=== PATIENT | female | born 1985 | race Caucasian/White ===

== ENCOUNTER 2023-04-05 17:26 | Outpatient (OUT) | payer BC, SELFPAY ==
--- NOTE | 2023-04-05 17:38 | US_ITS ---
[address] [address] Patient Name: JAMIA ARRINGTON MRN: [id number] date: 1985 Sex: F Assigned Patient Location: US Current Patient Location: Accession/Order Number: [id number] Exam Date: 04/05/2023 17:45 Report Date: 04/06/2023 07:34 At the request of: FRANC ELISE Procedure: US OB growth EXAMINATION: US OB growth HISTORY: 30 WEEKS GESTATION OF Z3A.30 COMPARISON: No relevant comparison available. FINDINGS: Heart Rate: 140.6 bpm Number: 1.0 Position: CEPHALIC Amniotic Fluid Volume: 14.2 cm Maximum Vertical Pocket: 5.0 cm BIOMETRY: BPD: 7.6 cm cm; 30 weeks 4 days; 75% HC: 28.8 cmcm; 31 weeks 5 days ; 80% AC: 26.4 cm cm; 30 weeks 4 days; 76% FL: 5.8 cm cm; 30 weeks 1 days; 56% EFW: 1589.2 grams; 77% FL/AC: 21.8 FL/BPD: 75.5 HC/AC: 1.1 GESTATIONAL AGE: Age by EDC: 29 weeks 3 days HECTOR by EDC: 06/18/2023 Age by US: 30 weeks 5 days HECTOR by US: 06/09/2023 US/US OB growth IMPRESSION: 1. Single live intrauterine with growth detailed above. Electronically authenticated by: NAZIA ROBLERO Date: 04/06/2023 07:34
== END 2023-04-05 17:27 | disposition home or self-care (01) ==
PROVIDERS: PCP Family Medicine; Visit Provider Midwife
DX: Z34.93 Encounter for supervision of normal pregnancy, unspecified, third trimester (principal); Z3A.30 30 weeks gestation of pregnancy
CPT/HCPCS: 76816

== ENCOUNTER 2023-06-11 20:18 | Inpatient (IN) | payer BC, SELFPAY ==
[2023-06-11] VITALS (22 sets, daily range): BP systolic 98–135; BP diastolic 55–82; PULSE 67–103; TEMP 36.4–36.9; O2SAT 97–98
--- OUTSIDE RECORDS SUMMARY | 2023-06-11 20:25 | XMS_ITS | CCD ---
Author Organization [facility] Care Team Providers Care Unit Control Worker Name Role Phone Elba Birch DO Primary Care Provider Fanny Lino MD Primary Care Provider Pump RADIO TALK SHOW HOST, Margarita Unavailable PUMP, MARGARITA Attending Unavailable FLORO, FRANC L Attending Unavailable FLORO, FRANC L Attending Unavailable FLORO, FRANC L Attending Unavailable FLORO, FRNAC L Referring Unavailable FLORO, FRANC L Attending Unavailable FLORO, FRANC L Attending Unavailable FLORO, FRANC L Referring Unavailable FLORO, FRANC L Attending Unavailable FLORO, FRANC L Referring Unavailable FLORO, FRANC L Attending Unavailable FLORO, FRANC L Referring Unavailable FLORO, FRANC L Attending Unavailable FLORO, FRANC L Referring Unavailable FLORO, FRANC L Referring Unavailable FLORO, FRANC L Attending Unavailable FLORO, FRANC L Attending Unavailable FLORO, FRANC L Referring Unavailable FLORO, FRANC L Attending Unavailable FLORO, FRANC L Referring Unavailable Medications Current Medications Medication Drug Class(es) Dates Sig (Normalized) Sig (Original) docusate sodium 100 mg oral capsule (5 sources) Start: 12-21-2022 End: 12-21-2023 take 1 capsule by mouth in the morning docusate sodium (Colace) 100 MG capsule Indications: Iron deficiency anemia, unspecified iron deficiency anemia type Take 1 capsule (100 mg) by mouth in the morning and 1 capsule (100 mg) before bedtime. 60 capsule 11 12/21/2022 12/21/2023 Active ferrous sulfate 325 mg oral tablet (5 sources) Start: 12-21-2022 End: 12-21-2023 take 1 tablet by mouth in the morning ferrous sulfate (FerrouSul) 325 (65 Fe) MG tablet Indications: Iron deficiency anemia, unspecified iron deficiency anemia type Take 1 tablet (325 mg) by mouth in the morning and 1 tablet (325 mg) before bedtime. 60 tablet 11 12/21/2022 12/21/2023 Active metFORMIN hydrochloride 500 mg oral tablet (5 sources) Biguanide Start: 08-08-2022 take 1 tablet by mouth twice daily at mealtime metFORMIN (Glucophage) 500 MG tablet Indications: Pelvic and perineal pain TAKE 1 TABLET BY MOUTH TWICE DAILY WITH A MEAL FOR 30 DAYS 180 tablet 1 08/08/2022 Active omeprazole 40 mg delayed release oral capsule (3 sources) Proton Pump Inhibitor take 1 capsule by mouth before mealtime omeprazole (PriLOSEC) [address] capsule Take 1 capsule by mouth in the morning. Take before meals. Do not crush or chew.. 0 Active MV-Min-Fe Fum-FA-DHA ( 1 PO) (3 sources) MV-Min- Fe Fum-FA-DHA ( 1 PO) Take 1 tablet by mouth in the morning. 0 Active sertraline 25 mg oral tablet (5 sources) Serotonin Reuptake Inhibitor Start: 12-05-2022 End: 12-05-2023 take 1 tablet by mouth in the morning sertraline (Zoloft) 25 MG tablet Indications: Recurrent major depression in partial remission (HCC) (CMS/HCC) Take 1 tablet (25 mg) by mouth in the morning. 90 tablet 1 12/05/2022 12/05/2023 Active Problems Active Problems Problem Classification Problem Date Documented Date Episodic/Chronic Anxiety disorders (5 sources) Anxiety; Translations: [Anxiety disorder, unspecified] Onset: 02-25-2020 02-16-2023 Chronic Deficiency and other anemia (5 sources) Iron deficiency anemia due to blood loss; Translations: [Iron deficiency anemia secondary to blood loss (chronic)] Onset: 02-16-2023 02-16-2023 Chronic Esophageal disorders (5 sources) Gastroesophageal reflux disease; Translations: [Gastro-esophageal reflux disease without esophagitis] Onset: 03-03-2019 02-16-2023 Chronic Female infertility (10 sources) Anovulation; Translations: [Female infertility associated with anovulation] Onset: 02-16-2023 02-16-2023 Chronic Heart valve disorders (5 sources) Heart murmur; Translations: [Cardiac murmur, unspecified] Onset: 02-19-2023 02-19-2023 Episodic Menstrual disorders (10 sources) Irregular periods; Translations: [Irregular menstruation, unspecified] Onset: 03-22-2020 02-16-2023 Chronic Other complications of (2 sources) Anemia of ; Translations: [Anemia complicating , third trimester] 03-28-2023 Chronic Other complications of (2 sources) Multigravida of advanced maternal age; Translations: [Supervision of elderly multigravida, third trimester] 03-28-2023 Episodic Other nutritional; endocrine; and metabolic disorders (5 sources) Obese class I; Translations: [Obesity, unspecified] Onset: 02-16-2023 02-16-2023 Chronic Other and delivery including normal (4 sources) Normal ; Translations: [Encounter for supervision of other normal , second trimester] 02-08-2023 Episodic Other screening for suspected conditions (not mental disorders or infectious disease) (4 sources) Patient encounter status; Translations: [Encounter for screening for diabetes mellitus] 03-28-2023 Episodic Unclassified (5 sources) Patient on antidepressant monitoring plan Onset: 12-05-2022 12-05-2022 Unclassified (5 sources) Baseline PHQ-9 Onset: 12-05-2022 12-05-2022 Past or Other Problems Problem Classification Problem Date Documented Da te Episodic/Chronic Diabetes mellitus without complication (5 sources) Hyperglycemia; Translations: [Hyperglycemia, unspecified] Onset: 10-25-2020 02-16-2023 Episodic Residual codes; unclassified (5 sources) Family history of cancer; Translations: [Family history of malignant neoplasm, unspecified] Onset: 03-04-2019 Resolved: 02-19-2023 02-19-2023 Episodic Results Test Name Value Interpretation Reference Range Facil ity US BIOPHYSICAL PROFILE WO NON STRESS TESTINGon 06-01-2023 US BIOPHYSICAL PROFILE WO NON STRESS TESTING FINDINGS: Breathing Movements 2 Gross Body Movements 2 Tone 2 Qualitative amniotic fluid volume 2 Normal biophysical profile, 09/19. A single, viable intrauterine is present. Cephalic presentation. heart rate 134 bpm. Grade II fundal placenta. Cervical is closed, 4.9 cm IMPRESSION: Normal biophysical profile. TRANSCRIBED BY: ELECTRONICALLY SIGNED BY: Oswaldo Cabello MD Normal Not Available US BIOPHYSICAL PROFILE WO NON STRESS TESTINGon 05-25-2023 US BIOPHYSICAL PROFILE WO NON STRESS TESTING FINDINGS: Breathing Movements 2 Gross Body Movements 2 Tone 2 Qualitative amniotic fluid volume 2 A single, viable intrauterine is present. The cervix is closed 6.0 cm length. Heart rate 129. Cephalic presentation, fundal placement, Grade 1. JESUS is 17.0 cm. IMPRESSION: Normal biophysical profile. TRANSCRIBED BY: ELECTRONICALLY SIGNED BY: Oswaldo Cabello MD Normal Not Available US BIOPHYSICAL PROFILE WO NON STRESS TESTINGon 05-18-2023 US BIOPHYSICAL PROFILE WO NON STRESS TESTING EXAM: US BIOPHYSICAL PROFILE WO NON STRESS TESTING DATE: 05/18/2023 4:27 PM CLINICAL HISTORY: Advanced age. COMPARISON: OB ultrasound 05/11/2023 TECHNIQUE: Grayscale evaluation of the fetus was performed for biophysical profile purposes and does not constitute an anatomic survey. FINDINGS: Single live intrauterine . heart rate 131 bpm. Cephalic position. Grade 2 fundal placenta. Cervical length 5.0 cm. JESSU 12.15 cm, 31.9 percentile for gestation. Biophysical profile as follows: Breathin/2. Tone: 2/2. Gross movement: 2/2. JESUS: 2/2. Total: 8/8. IMPRESSION: BIOPHYSICAL PROFILE SCORE OF 8 OUT OF 8. ELECTRONICALLY SIGNED BY: Delvin Vega MD Normal Not Available US OB FOLLOW UP TRANSABDOMIN AL APPROACHon 05-11-2023 US OB FOLLOW UP TRANSABDOMINAL APPROACH FINDINGS: A single, live intrauterine is present with normal cardiac rate of 149 beats per minute. Normal activity and amniotic fluid volume. Amniotic fluid index is 16 cm. Morphology is grossly normal. Cervix difficult to see due to gestational age and shadowing. The placenta is posterior Grade 1.The current sonographic age is 34 weeks and 4 days, based on the following measurements: BPD 8.6 cm ( 34 weeks, 4 days) Head Circumference 31.0cm ( 34weeks, 4 days) Abdominal Circumference 30.6 cm ( 34 weeks,4 days) Femur Length 6.8 cm (34 weeks,6 days) Presentation Cephalic Placenta Posterior These measurements result in an estimated date of delivery of June 18, 2023 The current estimated weight is 2477 grams +/- grams ( 5 pound, 7 ounces). Weight by percentile 47.2% IMPRESSION: Single, live intrauterine , current sonographic age of 34 weeks and 4 days, with an estimated date of delivery of June 18, 2023 TRANSCRIBED BY: ELECTRONICALLY SIGNED BY: Oswaldo Cabello MD Normal Not Available US BIOPHYSICAL PROFILE WO NON STRESS TESTINGon 05-04-2023 US BIOPHYSICAL PROFILE WO NON STRESS TESTING EXAMINATION: US BIOPHYSICAL PROFILE WO NON STRESS TESTING DATE AND TIME:05/04/2023 9:19 AM REFERRING PHYSICIAN:FRANC PUTNAM CLINICAL HISTORY: Assess well-being. COMPARISON: 04/27/2023. Technique: Grayscale violation of the fetus was performed for biophysical profile purposes and does not constitute an anatomic survey. RESULT: The fetus received a score of 8 out of 8. Two points were awarded for the following: * breathing movementsYes * movementsYes * toneYes * Amniotic fluid volumeYes Amniotic fluid index was 16 cm, 61st percentile heart rate was 134 bpm. Cervix: Measures around 5.8 cm. position cephalic. Posterior placenta grade 1 IMPRESSION: BIOPHYSICAL PROFILE SCORE OF 8 OUT OF 8. JESUS AND HEART RATE DESCRIBED ABOVE. ELECTRONICALLY SIGNED BY: Boris Herrera MD Normal Not Available US BIOPHYSICAL PROFILE WO NON STRESS TESTINGon 04-27-2023 US BIOPHYSICAL PROFILE WO NON STRESS TESTING EXAMINATION: US BIOPHYSICAL PROFILE WO NON STRESS TESTING DATE AND TIME:04/27/2023 4:10 PM REFERRING PHYSICIAN:FRANC PUTNAM CLINICAL HISTORY: Assess well-being. Advanced maternal age. COMPARISON: 01/31/2023 Technique: Grayscale violation of the fetus was performed for biophysical profile purposes and does not constitute an anatomic survey. RESULT: The fetus received a score of 8 out of 8. Two points were awarded for the following: * breathing movementsYes * movementsYes * toneYes * Amniotic fluid volumeYes Amniotic fluid index was 11.8 cm. 54.8 percentile heart rate was 134 bpm. Cervix: Around 4.8 cm in length. Posterior placenta, grade 1. IMPRESSION: BIOPHYSICAL PROFILE SCORE OF 8 OUT OF 8. JESUS AND HEART RATE DESCRIBED ABOVE. ELECTRONICALLY SIGNED BY: Boris Herrera MD Normal Not Available US OB 14+ WEEKS ANATOMY SCAN on 01-31-2023 US OB 14+ WEEKS ANATOMY SCAN HISTORY: Follow-up. LMP of 09/11/2022 with dates from LMP of 20 weeks 2 days. COMPARISON: 11/09/2022. TECHNIQUE: Sonography of the pelvis was performed by transabdominal technique. Images were obtained and stored in a permanent archive. RESULT: Gestation: Single present. Position: Cephalic Placenta: Location: Posterior Grade: 0 Previa: absent Cervix: Not well visualized. Cardiac activity: 149 bpm BPD: 4.7 cm HC: 18.1 cm AC: 15.1 cm FL: 3.5 cm Amniotic fluid: 15.0, 57.9 percentile Estimated weight (EFW): 361 g (13 ounces), 59.1 percentile Estimated gestational age: 20 weeks 6 days estimated gestational age by composite. Anatomy: Normal appearance of the visualized lateral ventricles, cerebellum, cisterna magna, orbits, four-chamber heart, stomach, kidneys, cord insertion, three-vessel cord, bladder, 12 long bones, diaphragm, spine, somatic movement. LVOT and RVOT not well visualized. IMPRESSION: Single, live intrauterine with estimated 20 weeks 6 days gestational age. No gross anomalies. Size corresponds to dating by LMP. ELECTRONICALLY SIGNED BY: Boris Herrera MD Normal Not Available US Pelvic, Transvaginalon US Pelvic, Transvaginal HISTORY: Pelvic pain FINDINGS: Transabdominal and transvaginal imaging was performed. Uterus 9.5 x 5.6 x 4.2cm Endometrium 10 mm Right Ovary4.4 x 1.6 x 1.9 cm Left Ovary2.8 x 2.5 x 3.1 cm Normal uterine orientation. Shadowing calcified intramural fibroid 1.0 x 1.5 cm deep within the fundus closely neighboring though non-involving the otherwise normal appearing trilaminar endometrium. No pelvic fluid. Several approximate 1.0-1.5 cm follices with each ovary. IMPRESSION: 1. Normal endometrium, trilaminar appearance, 10 mm overall thickness. 2. Fundal intramural calcified fibroid approximately 1.0 x 1.5 cm. 3. Follicular ovaries. Report reported and signed by Oswaldo Cabello on 09/28/2021 0952 Normal [facility] Specialist Vital Signs Date Time Vital Sign Value Performing Clinician Piyushi cornell 03-28-2023 08:37-0500 Body mass index (BMI) [Ratio] 32.19 kg/m2 Franc Floro CNM Work Phone: [facility] 03-28-2023 08:37-0500 Body weight 79.83 kg Franc Floro CNM Work Phone: [facility] 03-28-2023 08:37-0500 Diastolic blood pressure 80 mm[Hg] Franc Floro CNM Work Phone: [facility] 03-28-2023 08:37-0500 Systolic blood pressure 116 mm[Hg] Franc Floro CNM Work Phone: [facility] 01-31-2023 16:24-0500 Diastolic blood pressure 70 mm[Hg] Franc Floro CNM Work Phone: [facility] 01-31-2023 16:24-0500 Systolic blood pressure 110 mm[Hg] Franc Floro CNM Work Phone: [facility] Encounters Encounter Date Encounter Type Care Provider Facility Start: 06-08-2023 ambulatory FRANC L FLORO Not Lorri ilable Start: 06-05-2023 End: 06-06-2023 ambulatory FRANC L FLORO Not Available Start: 06-01-2023 End: 06-02-2023 ambulatory FRANC L FLORO Not Available Start: 05-29-2023 End: 05-30-2023 ambulatory FRANC L FLORO Not Available Start: 05-25-2023 End: 05-26-2023 ambulatory FRANC L FLORO Not Available Start: 05-22-2023 End: 05-22-2023 ambulatory FRANC L FLORO Not Available Start: 05-18-2023 End: 05-19-2023 ambulatory FRANC L FLORO Not Available Start: 05-15-2023 End: 05-15-2023 ambulatory FRANC L FLORO Not Available Start: 05-11-2023 End: 05-12-2023 ambulatory FRANC L FLORO Not Available Start: 05-08-2023 End: 05-09-2023 ambulatory FRANC L FLORO Not Available Start: 05-04-2023 End: 05-05-2023 ambulatory FRANC L FLORO Not Available Start: 05-01-2023 End: 05-02-2023 ambulatory FRANC L FLORO Not Available Start: 04-27-2023 End: 04-28-2023 ambulatory FRANC L FLORO Not Available Start: 04-24-2023 End: 04-25-2023 ambulatory FRANC L FLORO Not Available Start: 03-28-2023 Bamboo flowsheet Rfanc L Phillip ro CNM Work Phone: [facility] Start: 03-28-2023 Bamboo flowsheet Franc L Phillip ro CNM Work Phone: [facility] Start: 03-28-2023 End: 03-28-2023 ambulatory FRANC L FLORO Not Available Start: 03-28-2023 End: 03-28-2023 Subsequent care visit Franc L Floro CNM Work Phone: [facility] Comment on above: Encounter for superv ision of other normal , third trimester (Primary Dx); Screening for diabetes mellitus (DM); Screening for iron deficiency anemia; Anemia during in third trimester; Advanced maternal age in multigravida, third trimester Start: 03-01-2023 End: 03-02-2023 ambulatory FRANC L FLORO Not Available Start: 02-19-2023 End: 02-19-2023 ambulatory MARGARITA PUMP Not Available Start: 01-31-2023 End: 02-01-2023 ambulatory FRANC L FLORO Not Available Start: 01-31-2023 End: 02-01-2023 ambulatory FRANC L FLORO Not Available Start: 01-31-2023 End: 01-31-2023 Subsequent care visit Franc L Floro CNM Work Phone: [facility] Comment on above: Encounter for superv ision of other normal , second trimester (Primary Dx) Start: 01-03-2023 End: 01-04-2023 ambulatory FRANC L FLORO Not Available Plan of Treatment Date Care Activity Detail Author Start: 10-25-2025 Screening for malign ant neoplasm of cervix [facility] Start: 04-25-2023 End: 04-25-2023 Patient encounter procedure 04/25/2023 4:00 PM EDT Routine [facility] [address] [facility] [id number] Abigailshyam Franc L, CNM [address] [place] [address] [facility] Start: 04-24-2023 End: 04-24-2023 Patient encounter procedure 04/24/2023 4:30 PM EDT Routine [facility] [address] [facility] [place] [phone] Franc Putnam, CNM [address] [place] [address] [facility] Start: 04-09-2023 End: 04-09-2023 Professional / ancillary services management 04/09/2023 4:30 PM EST Ancillary Procedure [facility] [address] [place] [phone] [facility] Start: 03-28-2023 End: 03-28-2024 CBC panel - Blood by Automated count CBC Lab Routine Screening for iron deficiency anemia Expected: 03/28/2023 (Approximate), Expires: 03/28/2024 [facility] Comment on above: Expected: 03/28/2023 (Approximate), Expires: 03/28/2024 Start: 03-28-2023 End: 03-28-2024 GLUCOSE, GESTATIONAL SCREEN (50G)-135 CUTOFF GLUCOSE, GESTATIONAL SCREEN (50G)-135 CUTOFF Lab Routine Screening for diabetes mellitus (DM) Expected: 03/28/2023 (Approximate), Expires: 03/28/2024 [facility] Work Phone: Comment on above: Expected: 03/28/2023 (Approximate), Expires: 03/28/2024 Start: 03-28-2023 End: 03-28-2024 US biophysical profile wo non stress testing US biophysical profile wo non stress testing Imaging Routine Advanced maternal age in multigravida, third trimester Expected: 03/28/2023, Expires: 03/28/2024 [facility] Comment on above: Expected: 03/28/2023 , Expires: 03/28/2024 Start: 03-28-2023 End: 03-28-2023 Patient encounter procedure [facility] Comment on above: Arrived Start: 10-13-2022 Influenza vaccination Influenza Vacc ine (#1) [facility] Start: 09-19-2008 Screening for malign ant neoplasm of cervix Pap Smear [facility] Immunizations Immunization Date Immunization Notes Care Provider Fa cili 11-27-2018 influenza, injectabl e, quadrivalent, preservative free Franc Floro CNM Work Phone: [facility] 11-27-2018 influenza virus vacc ine, unspecified formulation Franc Floro CNM Work Phone: [facility] 11-26-2018 influenza, high dose seasonal, preservative-free Franc Floro CNM Work Phone: [facility] 03-01-2018 tetanus toxoid, redu chava diphtheria toxoid, and acellular pertussis vaccine, adsorbed Franc Floro CNM Work Phone: [facility] 12-21-2017 influenza, injectabl e, quadrivalent, preservative free Franc Floro CNM Work Phone: [facility] 12-20-2017 influenza, high dose seasonal, preservative-free Franc Floro CNM Work Phone: [facility] Payers Date Payer Category Payer Unknown [id number] 2022 Unknown [id number] 2022 Unknown [id number] 2022 Unknown [id number] 1987 Unknown [id number] 2.16.84 0.1.153555.3.579.2.1259 1987 Unknown [id number] 2.16.84 0.1.899004.3.579.2.1258 1987 Unknown [id number] 2.16.84 0.1.821687.3.579.2.1258 1987 Unknown [id number] 2.16.84 0.1.097470.3.579.2.1258 1987 Unknown [id number] 2.16.84 0.1.288711.3.579.2.1258 1987 Unknown [id number] 2.16.84 0.1.018184.3.579.2.1258 1987 Unknown [id number] 2.16.84 0.1.712851.3.579.2.1258 1987 Unknown [id number] 2.16.84 0.1.592250.3.579.2.1258 1987 Unknown [id number] 2.16.84 0.1.058264.3.579.2.1258 1987 Unknown [id number] 2.16.84 0.1.633059.3.579.2.1258 1987 Unknown [id number] 2.16.84 0.1.937573.3.579.2.1258 1987 Unknown [id number] 2.16.84 0.1.944090.3.579.2.1258 1987 Unknown [id number] 2.16.84 0.1.945025.3.579.2.1258 1987 Unknown [id number] 2.16.84 0.1.600861.3.579.2.1258 1987 Unknown [id number] 2.16.84 0.1.998338.3.579.2.1258 1987 Unknown [id number] 2.16.84 0.1.575596.3.579.2.1258 1987 Unknown [id number] 2.16.840 .1.467866.3.579.2.1258 1987 Unknown [id number] 2.16.840 .1.239287.3.579.2.1258 1987 Unknown [id number] 2.16.840 .1.692433.3.579.2.1259 1987 Unknown [id number] 2.16.840 .1.014795.3.579.2.1259 Social History Date Type Detail Facility Start: 11-09-2022 [facility] Start: 11-09-2022 Tobacco use and exposure Smokeless t obacco non-user [facility] Start: 11-09-2022 End: 02-19-2023 Alcohol intake Ex-drinker (finding) [facility] Start: 02-19-2023 History of Social function [facility] Start: 02-19-2023 Tobacco use panel [facility] Start: 10-03-2022 Alcohol Comment caffeine: 1-2 cups per day coffee, pop on occasion [facility] Start: 09-25-2022 [facility] Start: 1985 Sex Assigned At Not on file [facility] Goals Date Patient Goal Desired Activity /State Personal health goal History of Present illness Narrative 03-28-2023 Franc Putnam CNM - 03/28/2023 8:30 AM EST Note Date & Type Note Facility 03-28-2023 History of Presen t illness Narrative Subjective No chief complaint on file. Jamia Soto is a 37 y.o. at 28w2d with a working estimated date of delivery of 06/18/2023, by Last Menstrual Period who presents for a routine visit. She denies vaginal bleeding, leakage of fluid, decreased movements, or contractions. Her is complicated by: AMA, anemia with The following portions of the chart were reviewed this encounter and updated as appropriate: Objective Physical Exam weight: 176 lb Expected Total Weight Gain: 15 lb-25 lb Pregravid BMI: 28.16 BP: 116/80 Urine glucose-negative,protein-negative Labs Imaging Assessment/Plan Diagnoses and all orders for this visit: Encounter for supervision of other normal , third trimester Screening for diabetes mellitus (DM) - GLUCOSE, GESTATIONAL SCREEN (50G)-135 CUTOFF; Future Screening for iron deficiency anemia - CBC; Future Anemia during in third trimester Patient states she takes her iron some days but I'm not the best at remembering Encouraged patient to continue iron regularly twice a day. PVU Continue vitamin Labs reviewed. Rhogam not required, patient is B+ positive GTT done today Follow up in 2 weeks for a routine visit NST and BPP testing documented in this encounter [facility] History of Present illness Narrative 01-31-2023 Franc Putnam CNM - 01/31/2023 3:45 PM EST Note Date & Type Note Facility 01-31-2023 History of Presen t illness Narrative Subjective No chief complaint on file. Jamia Soto is a 37 y.o. at 20w2d with a working estimated date of delivery of 06/18/2023, by Last Menstrual Period who presents for a routine visit. She denies vaginal bleeding, leakage of fluid, decreased movements, or contractions. Her is complicated by: AMA The following portions of the chart were reviewed this encounter and updated as appropriate: Objective Physical Exam Expected Total Weight Gain: 15 lb-25 lb Pregravid BMI: 28.85 Urine glucose-negative,protein-negative Labs Imaging Assessment/Plan Diagnoses and all orders for this visit: Encounter for supervision of other normal , second trimester Continue vitamin. Labs reviewed. Follow up in 2 weeks for a routine visit. documented in this encounter [facility] Evaluation note Note Date & Type Note Facility Evaluation note Diagnosis Encounter for supervision of other normal , second trimester- Primary documented in this encounter [facility] Evaluation note Note Date & Type Note Facility Evaluation note Diagnosis Encounter for supervision of other normal , third trimester- Primary Screening for diabetes mellitus (DM) Screening for diabetes mellitus Screening for iron deficiency anemia Anemia during in third trimester Advanced maternal age in multigravida, third trimester documented in this encounter [facility] Summary Purpose Family History No Family History Records FoundNo Family History Records Found Advance Directives No Advanced Directives Records FoundNo Advanced Directives Records Found Additional Source Comments INFORMATION SOURCE (unrecogn ized section and content) DATE CREATED AUTHOR 10/05/2021 [facility] dical Specialist DATE CREATED AUTHOR AUTHOR'S LAURO ATFELIX 06/11/2023 [facility] dical Specialists [employer] Care Teams (unrecognized sec tion and content) Unit Control Worker Relationship Specialty Start Date End Date QuetaElba KayceDO [address] [place] [address] PCP - General Family Medicine 06/20/22 02/18/23 Unit Control Worker Relationship Specialty Start Date End Date Fanny Lino MD [address] [place] [address] PCP - General Family Medicine 02/19/23 Margarita Bowen NP [address] [facility] [place] [address] Family Medicine 02/20/23 Unit Control Worker Relationship Specialty Start Date End Date Fanny Lino MD [address] [place] [address] PCP - General Family Medicine 02/19/23 Margarita Bowen NP [address] [place] [address] Family Medicine 02/20/23 FOR RECORDS PERTAINING TO PATIENTS WHO ARE OR HAVE BEEN ENROLLED IN A CHEMICAL DEPENDENCY/SUBSTANCEABUSE PROGRAM, SOME INFORMATION MAY BE OMITTED. This clinical summary was aggregated from multiple sources. Caution should be exercised in using it in the provision of clinical care. This summary normalizes information from multiple sources, and as a consequence, information in this document may materially change the coding, format and clinical context of patient data. In addition, data may be omitted in some cases. CLINICAL DECISIONS SHOULD BE BASED ON THE PRIMARY CLINICAL RECORDS. [facility]. provides no warranty or guarantee of the accuracy or completeness of information in this document.
[2023-06-11 20:43] LABS: Bilirubin Urine NEGATIVE (NEGATIVE); Blood Urine NEGATIVE (NEGATIVE); Clarity Urine CLEAR (CLEAR); Color Urine YELLOW (YELLOW); Glucose Urine UA NEGATIVE (NEGATIVE); Ketones Urine 15 mg/dL (NEGATIVE); Leukocyte Esterase Urine NEGATIVE (NEGATIVE); Nitrite Urine NEGATIVE (NEGATIVE); Protein Urine NEGATIVE (NEG/TRACE); Urine Microscopic Indicated NO; Urobilinogen Urine 0.2 EU/dL (0.2-1.0)
[2023-06-11 21:29] LABS: Amphetamine Screen Urine NEGATIVE (NEGATIVE); Barbiturates Screen Urine NEGATIVE (NEGATIVE); Benzodiazepines Screen Urine NEGATIVE (NEGATIVE); Buprenorphine Screen Urine NEGATIVE (NEGATIVE); Cannabinoid Screen Urine NEGATIVE (NEGATIVE); Cocaine Screen Urine NEGATIVE (NEGATIVE); Methadone Screen Urine NEGATIVE (NEGATIVE); Methamphetamines Screen Urine NEGATIVE (NEGATIVE); Opiate Screen Urine NEGATIVE (NEGATIVE); Oxycodone Screen Urine NEGATIVE (NEGATIVE); Phencyclidine Screen Urine NEGATIVE (NEGATIVE); Tricyclic Antidepressant Urine NEGATIVE (NEGATIVE)
[2023-06-11] MEDS: LACTATED RINGER'S SOLUTION 1,000 ML 1000 ML IV (21:40)
[2023-06-11 21:52] LABS: Hematocrit 33.7 % (36.0-48.0); Hemoglobin 11.2 g/dL (12.0-16.0); Mean Corpuscular HGB Conc 33.2 g/dL (29.9-35.2); Mean Corpuscular Volume 90.3 fL (81.0-99.0); Mean Platelet Volume 9.4 fL (9.5-13.5); Platelet Count 274 10^3/uL (150-450); Red Blood Count 3.73 10^6/uL (4.20-5.40); Red Cell Distribution Width 14.2 % (11.0-15.0); White Blood Count 12.8 10^3/uL (4.0-11.0)
[2023-06-11] MEDS: LACTATED RINGER'S SOLUTION 1,000 ML 125 ML IV (22:50)
[2023-06-11] MEDS: ROPIVACAINE HCL/PF 400 MG/200 ML PREMIX 6 MG EPIDURAL (23:17)
[2023-06-11] MEDS: LIDOCAINE HCL 2% PF 100 MG/5 ML VIAL INJ (23:47)
[2023-06-12] VITALS (45 sets, daily range): BP systolic 80–129; BP diastolic 49–76; PULSE 68–115; TEMP 36.8–37.2
[2023-06-12] MEDS: EPHEDRINE SULFATE 50 MG/ML VIAL IV (00:29)
--- NOTE | 2023-06-12 02:11 | PM.OBHP ---
OB - H&P: HPI History of Present Illness Chief complaint: CONTRACTIONS 2-5 MIN 06-18-23 : 2 Para: 1 Gestational age based on last menstrual period: 39.1 History of Present Dating criteria: LMP confirmed by 1st trimester US care: good care Ultrasounds: normal 1st trimester US and normal mid trimester US Narrative: anemia with , AMA with increased surveillance testing Labs Blood type: B (+) positive Rubella: immune RPR/VDLR: nonreactive GBS status: negative HBsAG: negative Review of Systems ROS Status of ROS: 10 or more systems reviewed and unremarkable except as noted in history and below Meds Home Medications and Allergies Allergies Allergy/AdvReac Type Severity Reaction Status Date / Time No Known Drug Allergies Allergy Verified 06/11/23 21:08 Exam Constitutional Vital Signs, click to edit/add: Last Vital Signs Temp 98.4 F 06/11/23 23:15 Pulse 88 06/12/23 01:57 Resp 18 06/11/23 23:15 BP 108/72 06/12/23 01:57 Pulse Ox 97 06/11/23 23:25 O2 Del Method Room Air 06/11/23 21:31 Documenting provider has reviewed patient's vital signs: yes Common normals: no apparent distress and oriented x3 General appearance: cooperative Orientation/consciousness: Yes awake, Yes oriented to person, Yes oriented to place and Yes oriented to time HENMT Common normals: normocephalic Eye Common normals: EOMs intact bilaterally Neck & C-Spine Common normals: full ROM Lymph Lymphatic: no lymphadenopathy noted Chest Common normals: inspection of chest normal Respiratory Common normals: normal respiratory effort Effort & inspection: able to speak in complete sentences Auscultation: clear to auscultation bilaterally Cardio Common normals: regular rate and regular rhythm Rate: regular rate Rhythm: regular rhythm GI Common normals: Normal to inspection, nondistended, normoactive bowel sounds present Auscultation: normoactive bowel sounds Back & Pelvis Common normals: no CVA tenderness Extremity Common normals: normal to inspection Neuro Common normals: oriented x3 Sensorium/orientation: awake, alert, oriented to person, oriented to place and oriented to time Psych Common normals: mental status grossly normal, thought process normal, cooperative, affect normal, speech normal and activity/motor behavior normal Attitude: calm Activity/motor behavior: appropriate eye contact Speech: normal speech Results Labs Labs: Short CBC 06/11/23 Range/Units 21:35 WBC 12.8 H (4.0-11.0) 10^3/uL Hgb 11.2 L (12.0-16.0) g/dL Hct 33.7 L (36.0-48.0) % Plt Count 274 (150-450) 10^3/uL Urine 06/11/23 Range/Units 20:35 Urine Color Yellow (YELLOW) Urine Clarity Clear (CLEAR) Urine pH 6.0 (5.0-9.0) Ur Specific [place] 1.020 (1.005-1.025) Urine Protein Negative (NEG/TRACE) mg/dL Urine Glucose (UA) Negative (NEGATIVE) mg/dL OB - A/P Assessment and Plan (1) Term : Urinary Catheter Management Urinary Catheter Management Urethral: Cath placed during this visit: yes Urethral indwelling: Yes Reason for continuing: prolonged immobilization Insertion date: 06/12/23 Insertion time: 00:18
[2023-06-12] MEDS: OXYTOCIN/0.9 % SODIUM CHLORIDE 20 UNITS/1,000 ML PLAST..BAG 125 UNIT IV (04:44)
--- NOTE | 2023-06-12 04:52 | PM.OBPRCVD ---
Procedure Intrapartal events: None Induction method: none Delivery monitor: external FHT and external uterine Route of delivery: Episiotomy Description: none L&D Laceration Description: periurethral - 1st degree Delivery repair: Vicryl Estimated blood loss (mL): 150 Anesthesia type: Epidural Disposition: no change Delivery date: 06/12/23 Gender: female presentation: vertex Placental delivery description: Spontaneous cord description: 3 Vessels, Nuchal Cord (x1 loose, reduced with delivery ) and Loose heart rate - 1 minute: 100 bpm or Greater respiratory effort - 1 minute: Spontaneous/Strong Cry muscle tone - 1 minute: Active Movement reflex response - 1 minute: Prompt Response color - 1 minute: Bluish Hands or Feet total score - 1 minute: 9 heart rate - 5 minute: 100 bpm or Greater respiratory effort - 5 minute: Spontaneous/Strong Cry muscle tone - 5 minute: Active Movement reflex response - 5 minute: Prompt Response color - 5 minute: Bluish Hands or Feet total score - 5 minute: 9
[2023-06-12] MEDS: IBUPROFEN 400 MG TABLET 800 MG PO ×3 (06:05→21:28)
[2023-06-12] MEDS: GLYCERIN/WITCH HAZEL PADS 1 PAD TOPICAL (06:28)
[2023-06-12] MEDS: BENZOCAINE/MENTHOL 85 GRAM SPRAY BOTTLE 1 APPLIC TOPICAL (06:29)
[2023-06-13 05:34] LABS: Basophils Absolute Auto 0.1 10^3/uL (0.0-0.1); Basophils Percent Auto 0.5 % (0.2-2.0); Eosinophils Absolute Auto 0.2 10^3/uL (0.0-0.7); Eosinophils Percent Auto 1.2 % (0.9-7.0); Hematocrit 29.7 % (36.0-48.0); Hemoglobin 9.3 g/dL (12.0-16.0); Immature Granulocytes Abs Auto 0.06 10^3/uL (0.00-0.03); Immature Granulocytes Pct Auto 0.5 % (0.0-0.5); Lymphocytes Absolute Auto 2.5 10^3/uL (1.2-3.8); Lymphocytes Percent Auto 18.4 % (20.5-60.0); Mean Corpuscular HGB Conc 31.3 g/dL (29.9-35.2); Mean Corpuscular Hemoglobin 29.5 pg (26.7-34.0); Mean Corpuscular Volume 94.3 fL (81.0-99.0); Mean Platelet Volume 9.2 fL (9.5-13.5); Monocytes Percent Auto 7.3 % (1.7-12.0); Neutrophils Absolute Auto 9.6 10^3/uL (1.4-6.5); Neutrophils Percent Auto 72.1 % (43.0-75.0); Platelet Count 233 10^3/uL (150-450); Red Blood Count 3.15 10^6/uL (4.20-5.40); Red Cell Distribution Width 14.5 % (11.0-15.0); White Blood Count 13.3 10^3/uL (4.0-11.0)
[2023-06-13 05:35] VITALS: TEMP 36.4
[2023-06-13] MEDS: IBUPROFEN 400 MG TABLET 800 MG PO ×2 (05:39→13:36)
[2023-06-13 05:57] VITALS: BP 120/61; PULSE 68
--- NOTE | 2023-06-13 07:31 | W.PC.ACHO ---
Registration Status: ADM IN Primary Language: Guyanese Preferred Language: Guyanese report given to Noman IQBAL at 0700. Active Medications Generic Name Dose Route Start Last Admin Trade Name Freq PRN Reason Stop Dose Admin Acetaminophen 650 mg 06/12/23 04:54 Acetaminophen 325 Mg Tablet PO Q6H PRN Mild Pain Al Hydroxide/Mg Hydroxide 2,400 mg 06/12/23 04:54 Magnesium Hydroxide 2,400 Mg/10 Ml Oral.Susp PO Q6H PRN Dyspepsia Benzocaine/Menthol 1 applic 06/12/23 04:54 06/12/23 06:29 Benzocaine/Menthol 85 Gram [place] Bottle TOPICAL 1 applic Q2H PRN Administration Pain Diphtheria/Pertussis/Tetanus Vacc 0.5 ml 06/14/23 09:00 Adacel Diph,Pertuss(Acell),Tet Vac/Pf 0.5 Ml Adult Syringe IM 06/14/23 09:01 .ONCE ONE Docusate Sodium 100 mg 06/13/23 09:00 Docusate Sodium 100 Mg Capsule PO BID BRI Lactated Ringer's 1,000 mls @ 125 mls/hr 06/11/23 21:30 06/11/23 22:50 Lactated Ringers IV 125 mls/hr .Q8H BRI Administration Ibuprofen 800 mg 06/12/23 05:00 06/13/23 05:39 Ibuprofen 400 Mg Tablet PO 800 mg Q8H BRI Administration Measles/Mumps/Rubella Vaccine Live 0.5 ml 06/14/23 09:00 Measles,Mumps,Rubella Vacc/Pf 0.5 Ml Vial SQ 06/14/23 09:01 .ONCE ONE Ondansetron HCl 4 mg 06/11/23 21:08 Ondansetron Pf 4 Mg/2 Ml Vial IV Q6H PRN Nausea And Vomiting Ondansetron HCl 4 mg 06/11/23 21:08 Ondansetron 4 Mg Rapdis Tablet SL Q6H PRN Nausea And Vomiting Oxytocin 10 unit 06/11/23 21:08 Oxytocin 10 Unit/Ml Vial IM 06/13/23 14:00 ONCE PRN Uterine Bleeding Senna 17.2 mg 06/12/23 20:00 Sennosides 8.6 Mg Tablet PO QHS PRN Constipation Simethicone 80 mg 06/12/23 04:54 Simethicone 80 Mg Tab.Chew PO QID PRN Abdominal Distention Temazepam 15 mg 06/12/23 04:54 Temazepam 15 Mg Capsule PO QHS PRN Sleep [place]/Glycerin 1 pad 06/12/23 04:54 06/12/23 06:28 Glycerin/[place] Pads TOPICAL 1 pad Q2H PRN Administration Pain Respiratory Oxygen Delivery Method Room Air Oxygen Delivery Method Room Air Oxygen Delivery Method Room Air Cardiology Heart Sounds Regular Heart Sounds Regular Renal Bladder Pattern Continent Bladder Pattern Continent
--- NOTE | 2023-06-13 07:46 | PM.OBPN ---
OB - PN: Subj Subjective Patient comments: no complaints and pain well controlled [place] status: doing well Exam Constitutional Vital Signs, click to edit/add: Last Vital Signs Temp 97.6 F 06/13/23 05:35 Pulse 68 06/13/23 05:57 Resp 16 06/13/23 05:35 BP 120/61 06/13/23 05:57 Pulse Ox 97 06/11/23 23:25 O2 Del Method Room Air 06/13/23 05:35 Documenting provider has reviewed patient's vital signs: yes Common normals: no apparent distress Respiratory Common normals: normal respiratory effort and clear to auscultation bilaterally Cardio Common normals: regular rate and regular rhythm GI Common normals: Normal to inspection, nondistended, normoactive bowel sounds present Extremity Common normals: no clubbing, cyanosis or edema and no calf tenderness Results Labs Labs: Short CBC 06/13/23 Range/Units 05:21 WBC 13.3 H (4.0-11.0) 10^3/uL Hgb 9.3 L (12.0-16.0) g/dL Hct 29.7 L (36.0-48.0) % Plt Count 233 (150-450) 10^3/uL Urinary Catheter Management Urinary Catheter Management Urethral: Cath placed during this visit: yes Urethral indwelling: Yes Reason for continuing: not indwelling catheter Insertion date: 06/12/23 Insertion time: 00:18 OB - PN: A/P Assessment and Plan (1) Term : Plan - Vaginal Delivery day: 1 Plan: routine care, discharge home and follow up 6 weeks Time Spent with Patient Time: Total time spent is greater than 50% in coordination of care (as documented) at patient's floor/unit and/or counseling patient: Total time spent with greater than 50% in coordination of care (as documented) at patient's floor/unit and/or counseling patient: less than 15 minutes
[2023-06-13 07:57] VITALS: BP 116/72; PULSE 79
--- NOTE | 2023-06-13 15:00 | PC.NURSE ---
visiting in room next door
[2023-06-13 15:09] VITALS: BP 116/72; PULSE 79; TEMP 37.2
== END 2023-06-13 15:50 | disposition home or self-care (01) | DRG 807 ==
PROVIDERS: Admitting Provider Midwife; PCP Family Medicine; Visit Provider Midwife
DX: O69.81X0 Labor and delivery complicated by cord around neck, without compression, not applicable or unspecified (principal); Z37.0 Single live birth; O71.82 Other specified trauma to perineum and vulva; Z3A.39 39 weeks gestation of pregnancy
CPT/HCPCS: 36415; 51702; 59050; 59410; 80307; 81003; 84112; 85025; 85027; 86850; 86900; 86901; 96374; 96375